=== PATIENT | male | born 1955 | race Caucasian/White ===

== ENCOUNTER 2018-04-12 12:46 | Emergency (ER) | payer OTHER, MEDICARE, BC ==
[2018-04-12] MEDS ORDERED: SODIUM CHLORIDE 0.9% 1000ML 1,000 ML IV ONE (12:58)
[2018-04-12 13:11] LABS: BASOPHILS % (AUTO) 1 % (0-3); EOSINOPHILS % (AUTO) 3 % (0-9); HEMATOCRIT 39 % (39-53); HEMOGLOBIN 13.1 gm/dl (13.5-17.7); MEAN CORPUSCULAR HEMOGLOBIN 26.5 pg (27.0-32.0); MEAN CORPUSCULAR HGB CONC 33.7 gm/dl (32.0-36.0); MONOCYTES % (AUTO) 6.6 % (0-12); NEUTROPHILS % (AUTO) 79.9 % (37-80)
[2018-04-12 13:14] VITALS: TEMP 98
[2018-04-12 13:30] LABS: BLOOD UREA NITROGEN 23 mg/dl (7-18); CALCIUM 8.8 mg/dl (8.5-10.1); CARBON DIOXIDE 30.9 mEq/L (21-32); CHLORIDE 99 mMol/L (98-107); CREATININE 1.66 mg/dl (0.80-1.30); GLOM FILT RATE 42 mL/min (>60); GLUCOSE 244 mg/dl (74-106); POTASSIUM 4.2 mMol/L (3.5-5.1); SODIUM 138 mMol/L (136-145); TROP I 0.039 ng/ml (0.000-0.056)
[2018-04-12 13:31] LABS: ALCOHOL < 0.003 gm/dl (0.000-0.08)
[2018-04-12 13:34] LABS: MEAN CORPUSCULAR VOLUME 79 fL (80-100)
[2018-04-12 14:43] LABS: AMPHETAMINES NEGATIVE (NEGATIVE); APPEARANCE,URINE Clear; BARBITUATES NEGATIVE (NEGATIVE); BENZODIAZEPINES NEGATIVE (NEGATIVE); BILIRUBIN,URINE NEGATIVE (NEGATIVE); CANNABINOL(THC) NEGATIVE (NEGATIVE); COCAINE(COC) NEGATIVE (NEGATIVE); COLOR,URINE Light yellow; GLUCOSE, URINE (UA) 1+ (NEGATIVE); KETONES,URINE NEGATIVE (NEGATIVE); LEUKOCYTE ESTERASE ,URINE NEGATIVE (NEGATIVE); METHADONE NEGATIVE (NEGATIVE); METHAMPHETAMINES NEGATIVE (NEGATIVE); NITRATE,URINE NEGATIVE (NEGATIVE); OCCULT BLOOD,URINE NEGATIVE (NEG-TRACE); OPIATES(OP13) NEGATIVE (NEGATIVE); OXYCODONE(OXY) NEGATIVE (NEGATIVE); PROPOXYPHENE(PPX) NEGATIVE (NEGATIVE); TRICYCLIC ANTIDEPRESSANTS POSITIVE (NEGATIVE); UROBILINOGEN,URINE 0.2 (0.2-1.0 EU)
[2018-04-12 15:00] LABS: CRYSTALS NEGATIVE (0-3 AVE/HPF); EPITHELIAL CELLS 0-1 (SQUAMOUS); RBC,URINE 0-1 (0-3AV/HPF); WBC,URINE 0-1 (0-5AV/HPF)
[2018-04-12 15:01] LABS: BACTERIA NEGATIVE (< 1+)
[2018-04-12] MEDS ORDERED: BACITRACIN 500 U/GM OIN TOP ONE ×2 (15:04)
[2018-04-12 16:18] VITALS: BP 140/86; PULSE 90; O2SAT 98
[2018-04-12 16:23] VITALS: RESP 24
== END 2018-04-12 15:29 | disposition home or self-care (01) | DRG 605 ==
LOC: ED 12:46
DX: S00.03XA Contusion of scalp, initial encounter (principal); W19.XXXA Unspecified fall, initial encounter; R79.1 Abnormal coagulation profile; R40.2362 Coma scale, best motor response, obeys commands, at arrival to emergency department; R40.2142 Coma scale, eyes open, spontaneous, at arrival to emergency department; R40.2252 Coma scale, best verbal response, oriented, at arrival to emergency department
CPT/HCPCS: 36415; 70450; 71046; 71275; 80048; 80305; 80307; 81001; 84484; 85025; 85378; 93005; 96365; 99284; 99285; Q9967; A6402; A6446; A9270-GY